=== PATIENT | male | born 1940 | race Caucasian/White ===

== ENCOUNTER 2017-01-24 18:53 | Emergency (ER) | payer MEDICARE, OTHER ==
[2017-01-24 19:12] VITALS: BP 123/81
[2017-01-24] MEDS ORDERED: DOXYcycline CAP(*) 100 MG PO ONE (19:37)
--- NOTE | 2017-01-24 19:42 | UC ---
Lower Extremity/Ankle HPI - HPI Summary HPI Summary: Found small tick L ankle today, was able to "flick it away" easily. Here because he knows several people being treated for lyme, is concerned about infection. - History of Current Complaint Chief Complaint: [place] Stated Complaint: TICK BITE Time Seen by Provider: 01/24/17 19:25 Hx Obtained From: Patient Onset/Duration: Resolved Severity Initially: Mild Severity Currently: None Alleviating Factor(s): Rest Able to Bear Weight: Yes - Allergies/Home Medications Allergies/Adverse Reactions: Allergies Allergy/AdvReac Type Severity Reaction Status Date / Time Fish/Shellfish Allergy Severe Vomiting Uncoded 01/24/17 19:13 PMH/Surg Hx/FS Hx/Imm Hx Previously Healthy: Yes Other History Of: Negative For: HIV, Hepatitis B, Hepatitis C, Anticoagulant Therapy - Surgical History Surgical History: Yes Surgery Procedure, Year, and Place: Back surgery 2000 , fusion, with metal. Left shoulder surgery 2002, torn rotator cuff repair. Knee 1964 - Family History Known Family History: Positive: Cardiac Disease - Father at 86 Negative: Hypertension - Social History Lives: Alone Alcohol Use: Rare Alcohol Amount: FAther dies Substance Use Type: None Smoking Status (MU): Never Smoked Tobacco Have You Smoked in the Last Year: No - Immunization History Most Recent Influenza Vaccination: utd Most Recent Tetanus Shot: utd Most Recent Pneumonia Vaccination: <5 years Review of Systems Constitutional: Negative Skin: Other - tick Eyes: Negative ENT: Negative Respiratory: Negative Cardiovascular: Negative Gastrointestinal: Negative Genitourinary: Negative Motor: Negative Neurovascular: Negative Musculoskeletal: Negative Neurological: Negative Psychological: Negative All Other Systems Reviewed And Are Negative: Yes Physical Exam Triage Information Reviewed: Yes Appearance: Well-Appearing, No Pain Distress, Well-Nourished Vital Signs: Initial Vital Signs Temp 96.6 F 01/24/17 19:07 Pulse 62 01/24/17 19:07 Resp 15 01/24/17 19:07 BP 123/81 01/24/17 19:07 Pulse Ox 98 01/24/17 19:07 Vital Signs Reviewed: Yes Eye Exam: Normal Eyes: Positive: Conjunctiva Clear ENT Exam: Normal ENT: Positive: Normal ENT inspection, Hearing grossly normal, Pharynx normal, TMs normal Dental Exam: Normal Neck exam: Normal Neck: Positive: Supple, Nontender, No Lymphadenopathy Respiratory Exam: Normal Respiratory: Positive: Chest non-tender, Lungs clear, Normal breath sounds, No respiratory distress, No accessory muscle use Cardiovascular Exam: Normal Cardiovascular: Positive: RRR, No Murmur Musculoskeletal Exam: Normal Neurological Exam: Normal Neurological: Positive: Alert Psychological Exam: Normal Skin Exam: Other - tick bite site benign, no erythema, streaking or drainage Lower Extremity Course/Dx - Differential Dx/Diagnosis Provider Diagnoses: tick bite Discharge - Discharge Plan Condition: Stable Disposition: HOME Patient Education Materials: Tick Bite (ED) Referrals: Elmer Calderon MD [Primary Care Provider] - 2 Weeks Additional Instructions: If you develop any of the following, please see your physician promptly: (1) Fever, chills, or generalized malaise associated with a headache. (2) A red round area at the site of the bite (or elsewhere) (3) Joint pain, joint swelling or generalized weakness. (4) Redness, swelling, or drainage at the site of the bite. Check yourself, your children and your pets for ticks whenever you've been in an area where ticks live. To remove a tick, grasp it firmly with some tweezers or a string in a slipknot as close to its head as possible and pull it steadily. Ticks do not have a typical "head" attached to their body. There are mouth parts sticking out which they use to feed. If there are mouth parts left behind in the wound there is NO increased risk of Lyme infection; however, the chances of a bacterial skin infection (cellulitis) are higher. If mouth parts remain after tick removal, the best thing to do is apply warm soaks to the area 3-4 times per day to encourage the skin to expel the foreign material. DOXYCYCLINE: Doxycycline (Vibramycin, Doryx) is an antibiotic of the tetracycline family. This type of drug is useful for infections of the respiratory tract and genital tract, and is sometimes used for intestinal infections. Unlike most tetracyclines, doxycycline can be taken with food. It is longer acting, and (usually) less prone to side effects than regular tetracycline. Tetracycline antibiotics can stain immature teeth and SHOULD NOT BE TAKEN BY CHILDREN, NURSING MOTHERS, OR WOMEN. Tetracyclines can make you more prone to sunburn. Abdominal cramping, nausea, and diarrhea are occasional side effects. Women may experience vaginal yeast infections. Call the doctor at once if you develop hives, itching, shortness of breath , or lightheadedness. WHEN A TICK IS NOT ENGORGED AND HAS BEEN ON LESS THAN 24 HOURS - THE RISK FOR LYME IS NEGLIGIBLE. YOU CAN REMOVE THE TICK AND OBSERVE THE AREA ON YOUR OWN. FOLLOW-UP CARE: You should contact your private physician for follow-up care if you develop spreading redness near the site of the bite or on any other areas of the body. If you are unable to get a timely appointment, or if you are worsening, call us or return for re-evaluation.
== END 2017-01-24 19:45 | disposition home or self-care (01) ==
LOC: UCEAST 18:53
DX: S90.562A Insect bite (nonvenomous), left ankle, initial encounter (principal); W57.XXXA Bitten or stung by nonvenomous insect and other nonvenomous arthropods, initial encounter; Y93.9 Activity, unspecified; Y92.9 Unspecified place or not applicable
CPT/HCPCS: 99212; A9270-GY; G0463

== ENCOUNTER 2017-03-14 14:18 | Emergency (ER) | payer MEDICARE, OTHER ==
[2017-03-14 14:46] VITALS: BP 144/69
--- NOTE | 2017-03-14 14:48 | UC ---
General HPI - HPI Summary HPI Summary: 76 YEAR OLD MALE PRESENTS WITH COMPLAINS OF FATIGUE AFTER A TICK BITE. ON A SIDE NOTE HE WAS SEEN RECENTLY FOR A TICK BITE AND GIVEN A PROPHYLAXIS DOSE OF 200 MG OF DOXYCYCLINE. - History of Current Complaint Chief Complaint: UCGeneralIllness Stated Complaint: FATIQUE Time Seen by Provider: 03/14/17 14:47 Hx Obtained From: Patient Onset/Duration: Gradual Onset Onset Severity: Moderate Current Severity: Moderate - Allergy/Home Medications Allergies/Adverse Reactions: Allergies Allergy/AdvReac Type Severity Reaction Status Date / Time Fish/Shellfish Allergy Severe Vomiting Uncoded 01/24/17 19:13 PMH/Surg Hx/FS Hx/Imm Hx Previously Healthy: Yes Other History Of: Negative For: HIV, Hepatitis B, Hepatitis C, Anticoagulant Therapy - Surgical History Surgical History: Yes Surgery Procedure, Year, and Place: Back surgery 2000 , fusion, with metal. Left shoulder surgery 2002, torn rotator cuff repair. Knee 1965 - Family History Known Family History: Positive: Cardiac Disease - Father at 86 Negative: Hypertension - Social History Alcohol Use: Rare Alcohol Amount: FAther dies Substance Use Type: None Smoking Status (MU): Former Smoker Have You Smoked in the Last Year: No - Immunization History Most Recent Influenza Vaccination: utd Most Recent Tetanus Shot: utd Most Recent Pneumonia Vaccination: <5 years Review of Systems Constitutional: Fatigue Skin: Negative Eyes: Negative ENT: Negative Respiratory: Negative Cardiovascular: Negative Gastrointestinal: Negative Genitourinary: Negative Motor: Negative Neurovascular: Negative Musculoskeletal: Negative Neurological: Negative Psychological: Negative All Other Systems Reviewed And Are Negative: Yes Physical Exam Triage Information Reviewed: Yes Vital Signs: Initial Vital Signs Temp 36.6 C 03/14/17 14:40 Pulse 49 03/14/17 14:40 Resp 16 03/14/17 14:40 BP 144/69 03/14/17 14:40 Pulse Ox 97 03/14/17 14:40 Eye Exam: Normal ENT Exam: Normal Dental Exam: Normal Neck exam: Normal Neck: Positive: 1 Respiratory Exam: Normal Cardiovascular Exam: Normal Abdominal Exam: Normal Musculoskeletal Exam: Normal Neurological Exam: Normal Psychological Exam: Normal Skin Exam: Normal Course/Dx - Differential Dx - Multi-Symptom Provider Diagnoses: FATIGUE POST TICK BITE. Discharge - Discharge Plan Condition: Stable Disposition: HOME Prescriptions: DOXYcycline CAP(*) [DOXYcycline 100MG CAP(*)] 100 mg PO BID #42 cap Patient Education Materials: Lyme Disease (ED), Tick Bite (ED) Referrals: Elmer Calderon MD [Primary Care Provider] -
[2017-03-14 15:12] LABS: EBV Response YES
[2017-03-14 18:57] LABS: Manual Entry Verification MD; Mono Internal Control QC Line Present
--- NOTE | 2017-03-15 10:33 | UC ---
Progress - Progress Note Progress Note: 03/15/17 Monospot negative. Being treated for Lyme. Gaudencio Braga MD
[2017-03-16 13:12] LABS: EBV Capsid Ag IgG Ab Positive (Negative); EBV Capsid Ag IgM Ab Negative (Negative)
--- NOTE | 2017-03-22 11:55 | UC ---
Progress - Progress Note Progress Note: 03/15/17 Monospot negative. Being treated for Lyme. Gaudencio Braga MD 03-23-17: LYME NEGATIVE. Gaudencio Braga MD
== END 2017-03-14 15:04 | disposition home or self-care (01) ==
LOC: UCEAST 14:18
DX: A69.20 Lyme disease, unspecified (principal); R53.83 Other fatigue; W57.XXXA Bitten or stung by nonvenomous insect and other nonvenomous arthropods, initial encounter; Z91.013 Allergy to seafood; Z87.891 Personal history of nicotine dependence
CPT/HCPCS: 36415; 86308; 86618; 86664; 86665; 99212; G0463

== ENCOUNTER 2018-01-01 11:37 | Emergency (ER) | payer MEDICARE, OTHER ==
[2018-01-01 12:06] VITALS: BP 145/62
[2018-01-01] MEDS ORDERED: Lidocaine 2% PF * 5 ML VIAL INJ ONE (12:07)
--- NOTE | 2018-01-01 12:07 | UC ---
Skin Complaint HPI - HPI Summary HPI Summary: 77 yo male presents with pain to upper buttocks cleft. He tells me that he was at his PCP's office 4 days ago and dx'd with a pilonidal cyst - no treatment at that time. He was told to monitor the area and if needed would refer to surgery. He had a pilonidal cyst 50+ years ago that resolved without treatment. Pt is here with increased pain and would like a referral to surgery - his PCP is out of town this week and was not available to do this. Denies fever, chills. - History of Current Complaint Chief Complaint: UCSkin Time Seen by Provider: 01/01/18 12:06 Stated Complaint: PERSONAL Hx Obtained From: Patient Onset/Duration: Gradual Onset Onset Severity: Mild Current Severity: Mild Pain Intensity: 3 Pain Scale Used: 0-10 Numeric - Allergy/Home Medications Allergies/Adverse Reactions: Allergies Allergy/AdvReac Type Severity Reaction Status Date / Time Fish/Shellfish Allergy Severe Vomiting Uncoded 01/01/18 12:06 Home Medications: Home Medications Amoxicillin 250 mg PO TID 01/01/18 [History Confirmed 01/01/18] Review of Systems Constitutional: Negative Skin: Other - Pilonidal cyst Respiratory: Negative Cardiovascular: Negative Gastrointestinal: Negative Neurological: Negative Psychological: Negative All Other Systems Reviewed And Are Negative: Yes PMH/Surg Hx/FS Hx/Imm Hx - Additional Past Medical History Additional PMH: Anxiety Previously Healthy: Yes Other History Of: Negative For: HIV, Hepatitis B, Hepatitis C, Anticoagulant Therapy - Surgical History Surgical History: Yes Surgery Procedure, Year, and Place: Back surgery 2000 , fusion, with metal. Left shoulder surgery 2002, torn rotator cuff repair. Knee 1965 - Family History Known Family History: Positive: Cardiac Disease - Father at 86 Negative: Hypertension - Social History Occupation: Retired Lives: With Family Alcohol Use: Rare Alcohol Amount: FAther dies Substance Use Type: None Smoking Status (MU): Former Smoker Have You Smoked in the Last Year: No - Immunization History Most Recent Influenza Vaccination: utd Most Recent Tetanus Shot: utd Most Recent Pneumonia Vaccination: <5 years Physical Exam - Summary Physical Exam Summary: GENERAL: NAD. WDWN. No pain distress. SKIN: Superior intergluteal cleft: Mild erythema and edema about 3-4mm in diameter. Mild TTP. No induration. No streaking, bleeding, or drainage. NECK: Supple. Nontender. No lymphadenopathy. CHEST: No accessory muscle use. Breathing comfortably and in no distress. CV: RRR. Without m/r/g. NEURO: Alert. CN II-XII grossly intact. PSYCH: Age appropriate behavior. Triage Information Reviewed: Yes Vital Signs: Initial Vital Signs Temp 97.7 F 01/01/18 11:59 Pulse 60 01/01/18 11:59 Resp 18 01/01/18 11:59 BP 145/62 01/01/18 11:59 Pulse Ox 100 01/01/18 11:59 Course/Dx - Course Course Of Treatment: Pilonidal cyst - not large enough to I&D with any benefit to pt today. Will refer to gen surg. - Diagnoses Provider Diagnoses: Pilonidal cyst Discharge - Sign-Out/Discharge Documenting (check all that apply): Discharge/Admit/Transfer - Discharge Plan Condition: Stable Disposition: HOME Patient Education Materials: Pilonidal Cyst (ED) Referrals: Elmer Calderon MD [Primary Care Provider] - Lorne Luna MD [Medical Doctor] - As Soon As Possible Additional Instructions: If you develop a fever, shortness of breath, chest pain, new or worsening symptoms - please call your PCP or go to the ED. Your blood pressure was high at todays visit. Please see your primary provider within 4 weeks for recheck and re-evaluation. 1) Please call the surgeon at the number below to schedule a follow up appointment for your cyst - Billing Disposition and Condition Condition: STABLE Disposition: Home
== END 2018-01-01 12:33 | disposition home or self-care (01) ==
LOC: UCEAST 11:37
DX: L05.91 Pilonidal cyst without abscess (principal); F41.9 Anxiety disorder, unspecified; Z91.013 Allergy to seafood; Z87.891 Personal history of nicotine dependence; Z82.49 Family history of ischemic heart disease and other diseases of the circulatory system
CPT/HCPCS: 99211; G0463

== ENCOUNTER 2019-06-23 07:15 | Emergency (ER) | payer MEDICARE, OTHER ==
[2019-06-23 07:22] VITALS: BP 154/66
--- NOTE | 2019-06-23 07:53 | UC ---
Ear Complaint HPI - HPI Summary HPI Summary: 78 yo male presents with left ear pain. He tells me that for the last 3 days he has had "cold symptoms" consisting of a runny nose, sinus congestion, and post nasal drip. Last night he began to have left ear pain and noticed some thin clear drainage. He mentions that he goes swimming often and has an old rx for cortisporin ear drops - he used these last night with no relief. Denies fever, chills, sore throat, cough, headache. - History of Current Complaint Chief Complaint: UCEar Stated Complaint: EAR PAIN Time Seen by Provider: 06/23/19 07:53 Hx Obtained From: Patient Onset/Duration: Sudden Onset Severity Initially: Moderate Severity Currently: Moderate Pain Intensity: 8 Pain Scale Used: 0-10 Numeric - Allergies/Home Medications Allergies/Adverse Reactions: Allergies Allergy/AdvReac Type Severity Reaction Status Date / Time Fish/Shellfish Allergy Severe Vomiting Uncoded 06/23/19 07:23 Home Medications: Home Medications buPROPion HCl [Bupropion HCl ER] 1 tab PO DAILY 06/23/19 [History Confirmed 04/03] PMH/Surg Hx/FS Hx/Imm Hx Psychological History: Anxiety, Depression Other History Of: Negative For: HIV, Hepatitis B, Hepatitis C, Anticoagulant Therapy - Surgical History Surgical History: Yes Surgery Procedure, Year, and Place: Back surgery 2000 , fusion, with metal. Left shoulder surgery 2002, torn rotator cuff repair. Knee 1965 - Family History Known Family History: Positive: Cardiac Disease - Father at 86 Negative: Hypertension - Social History Alcohol Use: Rare Alcohol Amount: FAther dies Substance Use Type: None Smoking Status (MU): Former Smoker Have You Smoked in the Last Year: No - Immunization History Most Recent Influenza Vaccination: utd Most Recent Tetanus Shot: utd Most Recent Pneumonia Vaccination: <5 years Review of Systems All Other Systems Reviewed And Are Negative: No Constitutional: Positive: Negative Skin: Positive: Negative Eyes: Positive: Negative ENT: Positive: Ear Ache, Nasal Discharge, Sinus Congestion Respiratory: Positive: Negative Cardiovascular: Positive: Negative Gastrointestinal: Positive: Negative Neurological: Positive: Negative Psychological: Positive: Negative Physical Exam - Summary Physical Exam Summary: GENERAL: NAD. WDWN. No pain distress. SKIN: No rashes, sores, lesions, or open wounds. HEENT: Head: AT/NC Eyes: EOM intact. Conjunctiva clear without inflammation or discharge. Ears: Hearing grossly normal. LEFT TM with mild erythema and bulging. Moderate canal edema and mild white/clear discharge. Mild TTP with auricular manipulation. Nose: Nasal mucosa pink and moist with clear rhinorrhea. NTTP maxillary and frontal sinus. Throat: Posterior oropharynx without exudates, erythema, or tonsillar enlargement. Uvula midline. NECK: Supple. Nontender. No lymphadenopathy. CHEST: CTAB. No r/r/w. No accessory muscle use. Breathing comfortably and in no distress. CV: RRR. Without m/r/g. Pulses intact. NEURO: Alert. PSYCH: Age appropriate behavior. Triage Information Reviewed: Yes Vital Signs: Initial Vital Signs Temp 98.7 F 06/23/19 07:19 Pulse 61 06/23/19 07:19 Resp 16 06/23/19 07:19 BP 154/66 06/23/19 07:19 Pulse Ox 100 06/23/19 07:19 Vital Signs Reviewed: Yes Ear Complaint Course/Dx - Course Course Of Treatment: Suspect otitis externa, but difficult to exclude otitis media on exam - therefore will cover for both. - Differential Dx/Diagnosis Provider Diagnosis: Otitis externa Discharge ED - Sign-Out/Discharge Documenting (check all that apply): Patient Departure All imaging exams completed and their final reports reviewed: No Studies - Discharge Plan Condition: Stable Disposition: HOME Prescriptions: Amoxicillin PO (*) [Amoxicillin 875 MG (*)] 875 mg PO BID #14 tab Ofloxacin 0.3% (Ear Drop)* [Floxin 0.3% OTIC.TJ (Ear Drop)] 5 drop LEFT EAR BID #1 btl Patient Education Materials: Otitis Externa (ED) Referrals: Elmer Calderon MD [Primary Care Provider] - Additional Instructions: If you develop a fever, shortness of breath, chest pain, new or worsening symptoms - please call your PCP or go to the ED immediately. Your blood pressure was high at todays visit. Please see your primary provider within 4 weeks for recheck and re-evaluation. - Billing Disposition and Condition Condition: STABLE Disposition: Home
== END 2019-06-23 08:09 | disposition home or self-care (01) ==
LOC: UCEAST 07:15
DX: H60.92 Unspecified otitis externa, left ear (principal); F41.9 Anxiety disorder, unspecified; F32.9 Major depressive disorder, single episode, unspecified; R09.89 Other specified symptoms and signs involving the circulatory and respiratory systems; R09.81 Nasal congestion; Z91.013 Allergy to seafood; Z79.899 Other long term (current) drug therapy; Z87.891 Personal history of nicotine dependence
CPT/HCPCS: 99212; G0463